=== PATIENT | female | born 1990 | race Caucasian/White ===

== ENCOUNTER 2021-02-07 14:28 | Emergency (ER) | payer OTHER ==
[~2021-02-07 14:28] MED LIST: PERCOCET 5/325 T1 EA PO
[2021-02-10 17:11] LABS: CHLAMYDIA TRACHOMATIS, NAA Negative (Negative); NEISSERIA GONORRHOEAE, NAA Negative (Negative)
== END 2021-02-07 16:30 | disposition home or self-care (01) ==
LOC: ER1 14:28
PROVIDERS: Physician Assistant
DX: N92.6 Irregular menstruation, unspecified (principal); Z88.1 Allergy status to other antibiotic agents; Z90.49 Acquired absence of other specified parts of digestive tract; Z79.899 Other long term (current) drug therapy
CPT/HCPCS: 81001; 84703; 87086; 99284